=== PATIENT | female | born 1940 | race Two or more races ===

== ENCOUNTER 2018-03-06 20:39 | Emergency (ER) | payer OTHER ==
[~2018-03-06] VITALS: Ht 147.3 cm; Wt 49.9 kg
--- NOTE | 2018-03-06 20:40 | NUR ---
PT CAYETANO FROM HOME TO ER BED 08 PRESENTS W/ POSSIBLE L FEMORAL FRACTURE, C/O L HIP AREA PAIN S/P FELL WHILE TRYING TO GET UP HER CHAIR AND FELL IN HER L SIDE. DENIED ANY OTHER INJURY. WAS GIVEN 50 MCG FENTANYL IV MEDICAL ASSISTANT PRN. DENIES PAIN AT THIS TIME STATING IT ONLY HURTS WHEN SHE MOVES. PLACED ON MONITOR. HYPERTENSIVE MEDICAL ASSISTANT PRN. AWAITING MD MELLO.
--- NOTE | 2018-03-06 20:55 | NUR ---
DR JACOBO AT BEDSIDE FOR EVAL.
--- NOTE | 2018-03-06 21:05 | NUR ---
AGRICULTURE MANAGER AT BEDSIDE FOR BLOOD DRAW.
[2018-03-06 21:10] LABS: BASOPHILS # (AUTO) 0.1 /CMM (0.0-0.2); BASOPHILS % (AUTO) 0.9 % (0.0-2.0); EOSINOPHILS % (AUTO) 0.6 % (0.0-6.0); HEMATOCRIT 33 % (33-45); HEMOGLOBIN 11.3 g/dL (11.5-14.8); LYMPHOCYTES # (AUTO) 0.9 /CMM (0.8-4.8); MEAN CORPUSCULAR HEMOGLOBIN 30 PG (26.0-33.0); MEAN CORPUSCULAR HGB CONC 34 g/dl (31.0-36.0); MEAN CORPUSCULAR VOLUME 88 fL (82-100); MONOCYTES # (AUTO) 0.7 /CMM (0.1-1.30); MONOCYTES % (AUTO) 8.4 % (2.0-12.0); NEUTROPHILS # (AUTO) 6.4 /CMM (1.8-8.9); NEUTROPHILS % (AUTO) 79.1 % (43.0-81.0); PLATELET COUNT (AUTO) 251 /CMM (150-450); RDW COEFFICIENT OF VARIATION 13.4 (11.5-15.0); RED BLOOD CELL COUNT(AUTO) 3.74 MIL/uL (4.0-5.2); WHITE BLOOD COUNT (AUTO) 8.1 K/uL (4.3-11.0)
--- NOTE | 2018-03-06 21:24 | NUR ---
RADIOLOGY AT BEDSIDE FOR L HIP AND L FEMUR AND CHEST XRAY.
[2018-03-06 21:26] LABS: CALCIUM, SERUM 8.9 mg/dL (8.5-10.1); CARBON DIOXIDE 26 mmol/L (21-32); CHLORIDE 99 mmol/L (98-107); CREATININE 0.8 mg/dL (0.6-1.3); GLUCOSE 149 mg/dL (74-106); POTASSIUM 3.9 mmol/L (3.5-5.1); SODIUM SERUM 133 mmol/L (136-145); UREA NITROGEN, BLOOD 15 mg/dL (7-18)
[2018-03-06 21:27] LABS: INR 0.93 (0.85-1.15)
--- NOTE | 2018-03-06 21:43 | NUR ---
CALLED [facility] FOR THIS PATIENT
[2018-03-06] MEDS ORDERED: HYDROMORPHONE INJ 0.5 MG/0.5 ML SYRINGE IV ONE (22:00)
[2018-03-06] MEDS ORDERED: HYDROMORPHONE 1 MG/1 ML DISP.SYRIN ONE (22:39)
--- NOTE | 2018-03-06 23:00 | NUR ---
DILAUDID DOUBLE ORDERED.
--- NOTE | 2018-03-06 23:12 | NUR ---
CALLED [facility] FOR UPDATE ON TRANSPORT NO ETA AVAILABLE YET.
--- NOTE | 2018-03-06 23:30 | NUR ---
REPORT GIVEN TO VICTOR HUGO CONRAD AT [facility]. AMBULANCE ETA 1215.
--- NOTE | 2018-03-06 23:33 | NUR ---
[facility] ETA 0015 HOURS. PT BEING TRANSFERRED TO [facility], ACCEPTED BY DR GUEVARA
[2018-03-07 00:24] VITALS: BP 167/49
--- NOTE | 2018-03-07 00:36 | NUR ---
TO BE TRANSPORTED TO [facility] IN STABLE CONDITION.
== END 2018-03-07 00:42 | disposition short-term general hospital (02) ==
LOC: ER 20:40
DX: S72.092A Other fracture of head and neck of left femur, initial encounter for closed fracture (principal); D64.9 Anemia, unspecified; I10 Essential (primary) hypertension; Z98.890 Other specified postprocedural states; W01.0XXA Fall on same level from slipping, tripping and stumbling without subsequent striking against object, initial encounter; Y93.89 Activity, other specified; Y92.89 Other specified places as the place of occurrence of the external cause; Y99.8 Other external cause status
CPT/HCPCS: 36415; 51702; 71045; 73503; 73552; 80048; 85025; 85730; 93005; 96374; 99285; A4606; J1170; 73502; Z7610